=== PATIENT | female | born 1980 ===

== ENCOUNTER 2018-03-29 10:12 | Emergency (ER) | payer OTHER, SELFPAY ==
[2018-03-29] MEDS ORDERED: ceFAZolin 1 GM in Sodium Chloride 0.9% 100 ML IVPB ONE (11:22)
--- NOTE | 2018-03-29 11:25 | ED PDOC ---
HPI: General Adult Time Seen by Provider: 03/29/18 11:23 Chief Complaint (Nursing): Groin Pain Chief Complaint (Provider): RIGHT THIGH SWELLING History Per: Patient (38 Y/O FEMALE HERE WITH RIGHT THIGH SWELLING/PAIN X FEW DAYS. DENIES ANY HISTORY OF TRAUMA. DENIES ANY FEVERS/CHILLS.) Past Medical History Reviewed: Historical Data, Nursing Documentation, Vital Signs Vital Signs: Last Vital Signs Temp 97.1 F L 03/29/18 10:24 Pulse 103 H 03/29/18 10:24 Resp 20 03/29/18 10:24 BP 108/70 03/29/18 10:24 Pulse Ox 99 03/29/18 11:25 - Family History Family History: States: No Known Family Hx - Home Medications Home Medications: Ambulatory Orders Medication Instructions Recorded Cephalexin [Keflex] 500 mg PO QID #28 capsule 03/29/18 Ibuprofen [Motrin] 600 mg PO Q8 PRN #21 tab 03/29/18 - Allergies Allergies/Adverse Reactions: Allergies Allergy/AdvReac Type Severity Reaction Status Date / Time No Known Allergies Allergy Verified 03/29/18 10:24 Review of Systems ROS Statement: Except As Marked, All Systems Reviewed And Found Negative Physical Exam - Reviewed Nursing Documentation Reviewed: Yes Vital Signs Reviewed: Yes - Physical Exam Appears: Positive for: Well, Non-toxic, No Acute Distress Head Exam: Positive for: ATRAUMATIC, NORMAL INSPECTION, NORMOCEPHALIC Skin: Positive for: Normal Color, Warm, DRY Eye Exam: Positive for: EOMI, Normal appearance, PERRL ENT: Positive for: Normal ENT Inspection Neck: Positive for: Normal, Painless ROM Cardiovascular/Chest: Positive for: Regular Rate, Rhythm Respiratory: Positive for: CNT, Normal Breath Sounds Gastrointestinal/Abdominal: Positive for: Normal Exam, Soft Back: Positive for: Normal Inspection Extremity: Positive for: Normal ROM, Tenderness, Swelling (3 CM SWELLING / TENDERNESS/ NOTED PROXIMAL THIGH NONPULSATILE WITH ECCHYMOSIS AND ERYTHEMA NOTED DISTALLY.) Neurologic/Psych: Positive for: Alert, Oriented - Laboratory Results Result Diagrams: 03/29/18 12:01 03/29/18 12:01 - ECG O2 Sat by Pulse Oximetry: 99 - Progress ED Course And Treament: ANCEF 1 GM IV X 1 DOSE FOR SINS OF CELLULITIS IMPRESSION: No drainable fluid like collection seen in the upper inner right thigh -the area of clinical concern. Findings on ultrasound are compatible with nonspecific edema here. Comments: Findings were discussed with the [facility] in the ER taking care the patient at the conclusion of the exam. If further soft tissue delineation is needed, consider MRI of the right thigh. Disposition - Clinical Impression Clinical Impression: Cellulitis - Patient ED Disposition Is Patient to be Admitted: No - Disposition Referrals: [facility] [Outside] Disposition: Routine/Home Disposition Time: 14:08 Condition: FAIR Additional Instructions: REGRESA EN 2 DE SOUZA PARA CHEQUARTE Prescriptions: Cephalexin [Keflex] 500 mg PO QID #28 capsule Ibuprofen [Motrin] 600 mg PO Q8 PRN #21 tab PRN Reason: Pain, Moderate (4-7) Instructions: Cellulitis (Skin Infection), Adult (DC) Forms: [employer] (Latvian) Print Language: NORWEGIAN
[2018-03-29 12:07] LABS: BASO % 0.2 % (0.0-2.0); EOS % 0.1 % (0.0-4.0); HEMOGLOBIN 14.6 g/dL (12.0-16.0); LYMPH # 0.9 K/uL (1.0-4.3); LYMPH % 6.6 % (20.0-40.0); MEAN CELL VOLUME 89.1 fl (81.0-99.0); MEAN CORPUSCULAR HEMOGLOBIN 31.6 pg (27.0-31.0); MEAN CORPUSCULAR HGB CONC 35.5 g/dL (33.0-37.0); MEAN PLATELET VOLUME 7.6 fl (7.2-11.7); MONO # 1.2 K/uL (0.0-0.8); MONO % 9.1 % (0.0-10.0); NEUT # 11.1 K/uL (1.8-7.0); PLATELET COUNT 216 K/uL (130-400); RBC 4.62 Mil/uL (3.80-5.20); RED CELL DISTRIBUTION WIDTH 12.8 % (11.5-14.5); WHITE BLOOD COUNT 13.3 K/uL (4.8-10.8)
[2018-03-29 12:23] LABS: BLOOD UREA NITROGEN 13 mg/dl (7-17); CALCIUM 9.4 mg/dL (8.4-10.2); GFR AFRICAN-AMERICAN > 60; GFR NON-AFRICAN AMERICAN > 60
[2018-03-29 12:27] LABS: VENOUS BLOOD GAS BASE EXCESS 2.4 mmol/L (0.0-2.0); VENOUS BLOOD GAS PCO2 45 mmHg (40-60); VENOUS BLOOD GAS PO2 23 mm/Hg (30-55)
--- NOTE | 2018-03-29 13:20 | US ---
PROCEDURE: HISTORY: EVALUATE FOR ABSCESS VS HEMATOMA. Patient presents with an area of erythema and tenderness over upper inner right thigh for 2 days. Patient also has fever and chills. The patient denies, when specifically asked, any history of cat scratch's or cat bites recently. COMPARISON: None TECHNIQUE: Real-time scanning the area of concern was performed. Color Doppler was applied. FINDINGS: In the upper inner right thigh, no discrete fluid like collection was identified. Instead the soft tissues in this area appeared slightly thicker (compared to the contralateral left side) with areas of inferred soft tissue edema like changes present. A few lymph nodes, morphologically normal in appearance were seen as well. Flow within the greater saphenous vein was noted. IMPRESSION: No drainable fluid like collection seen in the upper inner right thigh -the area of clinical concern. Findings on ultrasound are compatible with nonspecific edema here. Comments: Findings were discussed with the [facility] in the ER taking care the patient at the conclusion of the exam. If further soft tissue delineation is needed, consider MRI of the right thigh.
[2018-03-29 13:46] LABS: BANDS 2 % (0-2); LYMPHOCYTE 3 % (20-50); MONOCYTE 10 % (0-10); NEUTROPHIL 85 % (42-75); TOTAL CELLS COUNTED 100
[2018-03-29 13:47] LABS: PLATELET ESTIMATE NORMAL (NORMAL)
[2018-03-29 14:48] VITALS: BP 118/76; PULSE 89; RESP 18; TEMP 98.1; O2SAT 100
== END 2018-03-29 14:46 | disposition home or self-care (01) ==
LOC: H.ER 10:12
DX: L03.115 Cellulitis of right lower limb (principal)
CPT/HCPCS: 76882; 80048; 81025; 82803; 85025; 87040; 87491; 87591; 96374; 99282; J0690; J1885

== ENCOUNTER 2018-03-31 09:01 | Emergency (ER) | payer OTHER ==
[2018-03-31 09:03] VITALS: BMI 35.2
[2018-03-31 09:04] VITALS: RESP 16; TEMP 98; O2SAT 97
--- NOTE | 2018-03-31 10:51 | ED PDOC ---
HPI: Wound Care - HPI Time Seen by Provider: 03/31/18 09:08 Chief Complaint (Nursing): Wound Check Chief Complaint (Provider): Wound Check History Per: Patient Exam Limitations: no limitations Onset/Duration Of Symptoms: Days (03/31/18) Current Symptoms Are (Timing): Better Location Of Injury: Right: Thigh Additional Complaint(s): 38 year old female presents to the ED for a follow-up visit regarding a wound check. Patient was in the ED two days ago and diagnosed with cellulitis of right upper thigh and prescribed antibiotics Keflex. States the wound has improved, swelling has reduced, and the pain is gone. Patient feels much better and no other complaints or concerns. PMD: No Family Provider Past Medical History Reviewed: Historical Data, Nursing Documentation, Vital Signs Vital Signs: Last Vital Signs Temp 98 F 03/31/18 09:03 Pulse 80 03/31/18 09:03 Resp 16 03/31/18 09:03 BP 108/72 03/31/18 09:03 Pulse Ox 97 03/31/18 09:03 - Medical History PMH: No Chronic Diseases - Surgical History Surgical History: No Surg Hx - Family History Family History: States: No Known Family Hx - Home Medications Home Medications: Ambulatory Orders Medication Instructions Recorded Cephalexin [Keflex] 500 mg PO QID #28 capsule 03/29/18 Ibuprofen [Motrin] 600 mg PO Q8 PRN #21 tab 03/29/18 Sulfamethoxazole/Trimethoprim 1 tab PO BID #14 tab 03/31/18 [Bactrim DS 800 mg-160 mg] - Allergies Allergies/Adverse Reactions: Allergies Allergy/AdvReac Type Severity Reaction Status Date / Time No Known Allergies Allergy Verified 03/31/18 09:07 Review of Systems ROS Statement: Except As Marked, All Systems Reviewed And Found Negative Musculoskeletal: Positive for: Other (right upper thigh wound check) Physical Exam - Reviewed Nursing Documentation Reviewed: Yes Vital Signs Reviewed: Yes - Physical Exam Appears: Positive for: Well, No Acute Distress Head Exam: Positive for: ATRAUMATIC, NORMAL INSPECTION, NORMOCEPHALIC Skin: Positive for: Normal Color, Warm, Dry Eye Exam: Positive for: EOMI, Normal appearance, PERRL Extremity: Positive for: Normal ROM (right upper thigh), Other (mobile mass/ lymph node approx 5cm that is easily movable and nontender on right thigh ). Negative for: Tenderness, Pedal Edema, Swelling Neurologic/Psych: Positive for: Alert, Oriented (x3). Negative for: Motor/ Sensory Deficits - ECG O2 Sat by Pulse Oximetry: 97 (RA) Pulse Ox Interpretation: Normal Medical Decision Making Medical Decision Making: Time: 907 Initial Impression: Cellulitis Improved and Adenopathy Initial Plan: --Reevaluation Clinical Impression: Lymphadenopathy, inguinal Upon provider evaluation patient is medically stable, and requires no further treatment in the ED at this time. Patient will be discharged with Bactrim 800mg -160mg for cellulitis. Counseling was provided and all questions were answered regarding diagnosis and need for follow up with PMD. There is agreement to discharge plan. Return if symptoms persist or worsen. Scribe Attestation: Documented by Jaydon Shine, acting as a scribe for Leila Coronado MD Provider Scribe Attestation: All medical record entries made by the Scribe were at my direction and personally dictated by me. I have reviewed the chart and agree that the record accurately reflects my personal performance of the history, physical exam, medical decision making, and the department course for this patient. I have also personally directed, reviewed, and agree with the discharge instructions and disposition. Disposition - Clinical Impression Clinical Impression: Lymphadenopathy, inguinal, Cellulitis - Patient ED Disposition Is Patient to be Admitted: No - Disposition Referrals: [facility] [Outside] [facility] [Outside] Disposition: Routine/Home Disposition Time: 09:45 Condition: GOOD Additional Instructions: Follow up with your PCP in 2-3 days. Continue taking medications as directed. Prescriptions: Sulfamethoxazole/Trimethoprim [Bactrim DS 800 mg-160 mg] 1 tab PO BID #14 tab Instructions: Cellulitis (Skin Infection), Adult (DC) Print Language: CHILEAN
[2018-03-31 10:59] VITALS: BP 112/72; PULSE 78
== END 2018-03-31 10:59 | disposition home or self-care (01) ==
LOC: H.ER 09:01
DX: L03.115 Cellulitis of right lower limb (principal)

== ENCOUNTER 2018-07-16 16:29 | Emergency (ER) | payer OTHER ==
[2018-07-16 16:29] VITALS: BMI 35.2
[2018-07-16 17:17] VITALS: RESP 18
[2018-07-16] MEDS ORDERED: Sodium Chloride 0.9% 1,000 ML IV STA (17:48)
[2018-07-16 18:11] LABS: VENOUS BLOOD GAS BASE EXCESS 1.4 mmol/L (0.0-2.0); VENOUS BLOOD GAS PCO2 43 mmHg (40-60); VENOUS BLOOD GAS PO2 45 mm/Hg (30-55)
[2018-07-16 18:16] LABS: BASO % 0.4 % (0.0-2.0); EOS # 0.1 K/uL (0.0-0.7); EOS % 1.5 % (0.0-4.0); HEMOGLOBIN 15.2 g/dL (12.0-16.0); LYMPH # 1.7 K/uL (1.0-4.3); LYMPH % 21.2 % (20.0-40.0); MEAN CORPUSCULAR HEMOGLOBIN 31.5 pg (27.0-31.0); MEAN CORPUSCULAR HGB CONC 35.4 g/dL (33.0-37.0); MEAN PLATELET VOLUME 7.9 fl (7.2-11.7); MONO # 0.6 K/uL (0.0-0.8); MONO % 7.8 % (0.0-10.0); NEUT # 5.6 K/uL (1.8-7.0); NEUT % 69.1 % (50.0-75.0); NRBC % 0.1 % (0.0-0.0); RBC 4.82 Mil/uL (3.80-5.20); RED CELL DISTRIBUTION WIDTH 13.5 % (11.5-14.5); WHITE BLOOD COUNT 8.1 K/uL (4.8-10.8)
[2018-07-16 18:17] LABS: SQUAMOUS EPITHIAL 6 /hpf (0-5); URINE BACTERIA RARE (<OCC); URINE BILIRUBIN NEGATIVE (NEGATIVE); URINE BLOOD SMALL (NEGATIVE); URINE CLARITY SLIGHTY-CLOUDY (Clear); URINE COLOR STRAW (YELLOW); URINE GLUCOSE (UA) NEG (Normal); URINE LEUKOCYTE ESTERASE NEG Leu/uL (Negative); URINE PROTEIN NEGATIVE (NEGATIVE); URINE UROBILINOGEN 0.2-1.0 mg/dL (0.2-1.0)
[2018-07-16 18:26] LABS: ALB/GLOB RATIO 1.2 (1.0-2.1); ALBUMIN 4.3 g/dL (3.5-5.0); ALT/SGPT 64 U/L (9-52); AST/SGOT 47 U/L (14-36); BLOOD UREA NITROGEN 14 mg/dl (7-17); CALCIUM 9.7 mg/dL (8.4-10.2); GFR NON-AFRICAN AMERICAN > 60; LIPASE 78 U/L (23-300)
--- NOTE | 2018-07-16 19:00 | ED PDOC ---
HPI: Abdomen Time Seen by Provider: 07/16/18 17:17 Chief Complaint (Nursing): Abdominal Pain Chief Complaint (Provider): Abdominal Pain History Per: Patient History/Exam Limitations: no limitations Onset/Duration Of Symptoms: Days Current Symptoms Are (Timing): Still Present Additional Complaint(s): 38 y/o female with no significant PMHx presents to the ED complaining of abdominal pain around the mid-abdomen. Patient states pain feels like inflammation. Patient points specifically to the suprapubic abdomen and states it feels superficial. Patient reports pain was worse this morning. Patient additionally reports of taking Tylenol for pain with no relief. Denies nausea, vomiting and fever PMD: No Provider LNMP: 04/20/2018 (Denies ) Last Menstral Period: 04/20/2018 Past Medical History Reviewed: Historical Data, Nursing Documentation, Vital Signs Vital Signs: Last Vital Signs Temp 98.2 F 07/16/18 17:15 Pulse 76 07/16/18 17:15 Resp 18 07/16/18 17:15 BP 117/77 07/16/18 17:15 Pulse Ox 98 07/16/18 17:15 - Medical History PMH: No Chronic Diseases - Surgical History Surgical History: Cholecystectomy, (x3) - Family History Family History: States: No Known Family Hx - Home Medications Home Medications: Ambulatory Orders Medication Instructions Recorded Cephalexin [Keflex] 500 mg PO QID #28 capsule 03/29/18 Ibuprofen [Motrin] 600 mg PO Q8 PRN #21 tab 03/29/18 Sulfamethoxazole/Trimethoprim 1 tab PO BID #14 tab 03/31/18 [Bactrim DS 800 mg-160 mg] - Allergies Allergies/Adverse Reactions: Allergies Allergy/AdvReac Type Severity Reaction Status Date / Time No Known Allergies Allergy Verified 07/16/18 17:15 Review of Systems ROS Statement: Except As Marked, All Systems Reviewed And Found Negative Constitutional: Negative for: Fever Gastrointestinal: Positive for: Abdominal Pain. Negative for: Nausea, Vomiting Physical Exam - Reviewed Nursing Documentation Reviewed: Yes Vital Signs Reviewed: Yes - Physical Exam Appears: Positive for: Uncomfortable (lying on her left side in the position. Vitals within normal limits) Skin: Negative for: Cyanosis Cardiovascular/Chest: Positive for: Regular Rate, Rhythm Respiratory: Positive for: Normal Breath Sounds. Negative for: Respiratory Distress (acute ) Pulses-Radial (L): 2+ Pulses-Radial (R): 2+ Gastrointestinal/Abdominal: Positive for: Soft, Tenderness (over adipose. No Toth's tenderness). Negative for: Normal Exam (Obese abdomen), Guarding, Rebound Extremity: Positive for: Normal ROM (Full ROM of all extremities) - Laboratory Results Result Diagrams: 07/16/18 18:10 07/16/18 18:10 - ECG O2 Sat by Pulse Oximetry: 98 (RA) Pulse Ox Interpretation: Normal Medical Decision Making Medical Decision Making: Time: 175 A/P: Patient stable with isolated abdominal pain described as superficial. -- Possible hernia through laproscopic jolanta surgical sites. -- Toradol for pain. -- IV fluids ordered. Labs sent. -- Consider CT Abd/Pelvis for any abnormalities -- VBG -- HCG, Quantitative Series -- Sodium Chloride IV 1000 mls/hr -- Toradol 30 mg IVP -- Zofran Inj 4 mg IVP Time: 1809 Plan: -- CMP -- Lipase -- CBC with differentials -- Urinalysis Time: 1851 Plan: -- CT Abd w/ contrast -- On re-evaluation, patient reports no improvement of pain. On exam, abdomen soft, redicuble mass with significant pain on palpation over the right upper quadrant. CT Abd/Pelvis ordered to rule out herniation. Labs showed elevated liver enzymes. Patient informed on current status. Time: 1899 -- Patient endorsed to Dr. Saab for further evaluation. Scribe Attestation: Documented by Ron Martin acting as a scribe for Clarice Rogers MD. Provider Scribe Attestation: All medical record entries made by the Scribe were at my direction and personally dictated by me. I have reviewed the chart and agree that the record accurately reflects my personal performance of the history, physical exam, medical decision making, and the department course for this patient. I have also personally directed, reviewed, and agree with the discharge instructions and disposition. Disposition - Patient ED Disposition Is Patient to be Admitted: Transfer of Care - Disposition Disposition: Transfer of Care Disposition Time: 19:00 Patient Signed Over To: Felipe Saab
--- NOTE | 2018-07-16 19:42 | ED PDOC ---
- Laboratory Results Result Diagrams: 07/16/18 18:10 07/16/18 18:10 - ECG O2 Sat by Pulse Oximetry: 98 (RA) Pulse Ox Interpretation: Normal Medical Decision Making Medical Decision Making: Time: 1899 -- Patient endorsed to me by Dr. Rogers, pending CT and re-evaluation. Time: 2102 CT RESULTS FINDINGS: Lower thorax: Atelectasis or infiltrate in the base is suspected. ABDOMEN: Liver: The liver is fatty infiltrated. There is a 3.6 x 4.2 cm lesion identified on image 20 in the right hepatic lobe extending into the dome noted to measure 3.4 cm coronally. There is shunting/perfusional abnormality around the lesion. This is a indeterminate process; correlate for neoplasm such as hepatoma or adenoma. Other liver masses are not excluded. No bile duct dilatation. No additional lesions are seen. Gallbladder and bile ducts: Cholecystectomy. Pancreas: Normal. No ductal dilation. Spleen: Normal. No splenomegaly. Adrenals: Normal. No mass. Kidneys and ureters: Normal. No hydronephrosis. Stomach and bowel: Moderate fecal retention. Appendix: No evidence of appendicitis. PELVIS: Bladder: Unremarkable as visualized. Reproductive: Unremarkable as visualized. ABDOMEN and PELVIS: Intraperitoneal space: Normal. No free air. No significant fluid collection. Bones/joints: No acute fracture. No dislocation. Soft tissues: Small fat containing umbilical hernia. Vasculature: Normal. No abdominal aortic aneurysm. Lymph nodes: Normal. No enlarged lymph nodes. IMPRESSION: 1. Moderate fecal retention. 2. The liver is fatty infiltrated. There is a 3.6 x 4.2 cm lesion identified on image 20 in the right hepatic lobe extending into the dome noted to measure 3.4 cm coronally. There is shunting/perfusional abnormality around the lesion. This is a indeterminate process; correlate for neoplasm such as hepatoma or adenoma. Other liver masses are not excluded. Thank you for allowing us to participate in the care of your patient. Dictated and Authenticated by: Troy Henson MD 07/16/2018 9:03 PM Eastern Time ([place] & [place]) Time: 2199 -- Patient reports of marked improvement. Patient is stable for discharge with a diagnosis of constipation and abdominal pain. Patient instructed to follow up with [facility]. _ Scribe Attestation: Documented by Ron Martin acting as a scribe for Felipe Saab MD. Provider Scribe Attestation: All medical record entries made by the Scribe were at my direction and personally dictated by me. I have reviewed the chart and agree that the record accurately reflects my personal performance of the history, physical exam, medical decision making, and the department course for this patient. I have also personally directed, reviewed, and agree with the discharge instructions and disposition. Disposition - Clinical Impression Clinical Impression: Abdominal pain, Constipation - POA Present On Arrival: None - Disposition Referrals: [facility] [Outside] Disposition: Routine/Home Disposition Time: 22:00 Condition: IMPROVED Prescriptions: Polyethylene Glycol 3350 [Miralax] 17 g PO QAM PRN #7 pkg PRN Reason: Constipation Instructions: Acute Abdomen (Belly Pain) Forms: [employer] (Citizen Of [place]) Print Language: LITHUANIAN
[2018-07-16] MEDS ORDERED: Iohexol 300 100 ML IJ ONE (20:02)
[2018-07-16] MEDS ORDERED: Sodium Chloride 0.9% 50 ML IV ONE (20:02)
[2018-07-16 22:38] VITALS: BP 119/81; PULSE 68; TEMP 97.6
[2018-07-16 23:00] VITALS: O2SAT 98
--- NOTE | 2018-07-17 12:32 | CT ---
Date of service: 07/16/2018 PROCEDURE: CT Abdomen and Pelvis with contrast HISTORY: RUQ bulharrye w h/o cholecystectomy COMPARISON: None. TECHNIQUE: Contrast dose: 95 cc omni 300 Radiation dose: Total exam DLP = 720 mGy-cm. This CT exam was performed using one or more of the following dose reduction techniques: Automated exposure control, adjustment of the mA and/or kV according to patient size, and/or use of iterative reconstruction technique. FINDINGS: LOWER THORAX: Evaluation of the lung bases reveals mild dependent subsegmental atelectasis without effusion or infiltrate. Minor scarring is noted. No pericardial effusion is seen. Visualized distal esophagus shows evidence of small hiatal hernia. LIVER: There is abnormal appearance of the liver which is moderately fatty infiltrated. However in addition there is a heterogeneous enhancing lesion in the right lobe of the liver superiorly extending towards the dome of the liver. This measures 4.7 by 4.3 by 4.7 centimeters. Additionally there are areas of possible shunting vasculature within the right lobe of the liver adjacent to the lesion. Differential would include hepatoma, adenoma, and/or FNH. MRI with liver protocol would be suggested. No other focal masses are seen within the liver. No intrahepatic ductal dilatation is noted. GALLBLADDER AND BILE DUCTS: Gallbladder is been previously removed. Common bile duct is normal in size for a post cholecystectomy patient. PANCREAS: Unremarkable. No gross lesion or ductal dilatation. SPLEEN: Unremarkable. ADRENALS: Unremarkable. No mass. 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 Kidneys are otherwise normal in size without hydronephrosis, perinephric change, or solid mass. Ureters are normal in outline without dilatation. VASCULATURE: Unremarkable. No aortic aneurysm. BOWEL: Unremarkable. No obstruction. No gross mural thickening. APPENDIX: No right lower quadrant inflammatory process is seen to suggest appendicitis. PERITONEUM: No ascites is seen. No free air is noted. LYMPH NODES: Unremarkable. No enlarged lymph nodes. BLADDER: Unremarkable. REPRODUCTIVE: Uterus is enlarged with possible sub septate deformity. No focal fibroid is seen. No adnexal masses are identified. BONES: No acute fracture. OTHER FINDINGS: None. IMPRESSION: Focal abnormal enhancing right liver lobe lesion with surrounding shunting and/or perfusional abnormality within the right lobe of the liver. Differential given above. MRI suggested for further evaluation. No appreciable acute inflammatory process elsewhere in the abdomen or pelvis. This agrees with preliminary report.
== END 2018-07-16 22:38 | disposition home or self-care (01) ==
LOC: H.ER 16:29
DX: R10.9 Unspecified abdominal pain (principal); K59.00 Constipation, unspecified
CPT/HCPCS: 74177; 80053; 81003; 81025; 82803; 83690; 84703; 85025; 96374; 96375; 99284; J1885; J2405; J7030; Q9967

== ENCOUNTER 2019-01-19 09:20 | Emergency (ER) | payer OTHER ==
[2019-01-19 09:39] VITALS: BMI 35.7
--- NOTE | 2019-01-19 10:47 | ED PDOC ---
HPI: Female Pain Time Seen by Provider: 01/19/19 10:06 Chief Complaint (Nursing): Female Genitourinary Chief Complaint (Provider): pain History Per: Patient Additional Complaint(s): Pt reports pain to R vaginal area X 3 days, currently on menses. Denies fever, dysuria, hematuria. Past Medical History Reviewed: Nursing Documentation, Vital Signs Vital Signs: Last Vital Signs Temp 98.4 F 01/19/19 09:41 Pulse 77 01/19/19 09:41 Resp 18 01/19/19 09:41 BP 128/80 01/19/19 09:41 Pulse Ox 97 01/19/19 09:41 - Medical History PMH: No Chronic Diseases - Family History Family History: States: Unknown Family Hx - Living Arrangements Living Arrangements: With Family - Social History Current smoker - smoking cessation education provided: No Alcohol: None - Home Medications Home Medications: Ambulatory Orders Medication Instructions Recorded Naproxen [Naprosyn] 500 mg PO BID PRN #15 tablet 01/19/19 Sulfamethoxazole/Trimethoprim 1 tab PO BID #10 tab 01/19/19 [Bactrim DS 800 mg-160 mg] - Allergies Allergies/Adverse Reactions: Allergies Allergy/AdvReac Type Severity Reaction Status Date / Time No Known Allergies Allergy Verified 01/19/19 10:12 Review of Systems Constitutional: Negative for: Fever Gastrointestinal: Negative for: Abdominal Pain Genitourinary Female: Positive for: Vaginal Bleeding. Negative for: Dysuria, Hematuria, Vaginal Discharge Skin: Negative for: Rash, Lesions Physical Exam - Reviewed Nursing Documentation Reviewed: Yes Vital Signs Reviewed: Yes - Physical Exam Appears: Positive for: Well, No Acute Distress Skin: Positive for: Normal Color, Warm, Dry Gastrointestinal/Abdominal: Positive for: Normal Exam, Bowel Sounds, Soft. Negative for: Tenderness Pelvic Exam: Positive for: Other (TTP R labia majora, minimal induration, no fluctuance, no mass ([employer]: [place])) Neurological/Psych: Positive for: Awake, Alert - ECG O2 Sat by Pulse Oximetry: 97 Medical Decision Making Medical Decision Makin yo female with labial pain. - Rx Bactrim DS - Motrin Disposition - Clinical Impression Clinical Impression: Labial pain, Cellulitis - Disposition Referrals: [facility] [Outside] Disposition: Routine/Home Disposition Time: 12:48 Condition: STABLE Prescriptions: Naproxen [Naprosyn] 500 mg PO BID PRN #15 tablet PRN Reason: Pain, Moderate (4-7) Sulfamethoxazole/Trimethoprim [Bactrim DS 800 mg-160 mg] 1 tab PO BID #10 tab Instructions: Cellulitis and Erysipelas (Skin Infections) Forms: [employer] (Hebrew) Print Language: WELSH
[2019-01-19 13:01] VITALS: BP 129/83; PULSE 70; RESP 16; TEMP 98
[2019-01-20 07:51] VITALS: O2SAT 97
== END 2019-01-19 13:00 | disposition home or self-care (01) ==
LOC: H.ER 09:20 → MERGE 09:20 → H.ER 13:00
DX: N76.2 Acute vulvitis (principal); R10.2 Pelvic and perineal pain